=== PATIENT | male | born 1940 | race Caucasian/White ===

== ENCOUNTER 2017-12-01 19:22 | Emergency (ER) | payer MEDICARE, SELFPAY ==
[2017-12-01] MEDS ORDERED: Sulfameth/Trimethoprim DS 800-160mg TAB ONE (20:19)
[2017-12-01] MEDS ORDERED: Bacitracin Zinc 1 Packet ONE (20:19)
== END 2017-12-01 20:45 | disposition home or self-care (01) ==
LOC: ERS 19:22
DX: S51.011A Laceration without foreign body of right elbow, initial encounter (principal); F17.200 Nicotine dependence, unspecified, uncomplicated; V18.4XXA Pedal cycle driver injured in noncollision transport accident in traffic accident, initial encounter
CPT/HCPCS: 99282

== ENCOUNTER 2018-07-02 06:40 | Emergency (ER) | payer OTHER, MEDICARE ==
[2018-07-02] MEDS ORDERED: Cephalexin 250 MG CAP ONE (08:34)
== END 2018-07-02 08:39 | disposition home or self-care (01) ==
LOC: ERS 06:40
DX: M00.9 Pyogenic arthritis, unspecified (principal); F17.210 Nicotine dependence, cigarettes, uncomplicated
CPT/HCPCS: 99283

== ENCOUNTER 2021-03-30 06:11 | Inpatient (IN) | payer OTHER ==
[2021-03-30] MEDS ORDERED: Cefepime 2 GM VIAL ONE (06:27)
[2021-03-30] MEDS ORDERED: Norepinephrine 8 MG/0.9% NS 250 ML ONE (06:48)
[2021-03-30 06:53] LABS: #Lymphocytes 0.6 thou/uL (1.20-3.40); #Monocytes 0.7 thou/uL (0.11-0.59); #Neutrophils 5.1 thou/uL (1.40-6.50); %Eosinophils 0.1 % (0.0-10.0); %Lymphocytes 8.7 % (21.0-51.0); %Monocytes 11.5 % (0.0-10.0); %Neutrophils 79.6 % (42.0-75.0); Hemoglobin 12.7 g/dL (14.0-18.0); Mean Corpuscular HGB CONC 34.5 g/dL (32.0-36.0); Mean Corpuscular Hemoglobin 36.5 pg (27.0-31.0); Mean Platelet Volume 7.8 fL (7.4-10.4); Platelet Count 255 thou/uL (130-400); RBC Distribution Width 13.4 % (11.5-14.5); Red Blood Cell (RBC) Count 3.47 mill/uL (4.70-6.10); White Blood Cell (WBC) Count 6.4 thou/uL (4.8-10.8)
[2021-03-30 07:12] LABS: ALT (SGPT) 19 U/L (8-55); AST (SGOT) 59 U/L (5-34); Albumin 3.6 g/dL (3.4-4.8); Alkaline Phosphatase 84 U/L (40-110); Anion Gap 21 mmol/L (10-20); BUN (Urea Nitrogen) 58 mg/dL (8.4-25.7); Bilirubin, Total 1.6 mg/dL (0.2-1.2); CK (CPK) 549 U/L (30-200); Calc. Creatinine Clearance 0 mL/min (70-130); Carbon Dioxide 29 mmol/L (23-31); Chloride 105 mmol/L (98-107); Globulin 3.8 g/dL (2.4-3.5); Glucose 123 mg/dL (83-110); Lipase 123 U/L (8-78); Protein, Total 7.4 g/dL (5.8-8.1); Sodium 152 mmol/L (136-145)
[2021-03-30 07:18] LABS: Calcium 15.4 mg/dL (7.8-10.44); Potassium 2.8 mmol/L (3.5-5.1)
[2021-03-30 07:33] LABS: Bilirubin 1+ (Negative); Blood, Urine Trace (Negative); Clarity Turbid (Clear); Glucose, Urine (Dipstick) Normal (Negative); Ketone, Urine Negative (Negative); Leukocyte Negative Leu/uL (Negative); Nitrite Negative (Negative); Protein, Urine (Dipstick) 20 mg/dL (Neg-Trace); RBC/HPF 0-3 HPF (0-3); Specific Gravity, Urine 1.018 (1.002-1.036); Squamous Epithelial 0-3 HPF (0-3); Urobilinogen Normal mg/dL (Less than 2); pH, Urine 5.5 (5.0-9.0)
[2021-03-30 07:36] LABS: Bacteria/HPF 1+ HPF (None Seen)
[2021-03-30 07:42] LABS: Amphetamine Not Detected (NotDetected); Barbiturates Screen Not Detected (NotDetected); Benzodiazepine Screen Not Detected (NotDetected); Cocaine Metabolite Screen Not Detected (NotDetected); Medtox Control Line Valid? VALID (VALID); Medtox Reader # READER 4; Methadone Not Detected (NotDetected); Methamphetamine Not Detected (NotDetected); Opiate Screen Not Detected (NotDetected); Oxycodone Screen Not Detected (NotDetected); Phencyclidine (PCP) Not Detected (NotDetected); THC/Cannabinoid Screen Not Detected (NotDetected); Tricyclic Screen Not Detected (NotDetected)
[2021-03-30 07:49] LABS: CKMB 10.4 ng/mL (0-6.6)
[2021-03-30 08:01] LABS: Acetaminophen Less than 6.0 mcg/mL (10.0-30.0); Alcohol Less than 10 mg/dL (Less than 10); Salicylate Less than 8.0 mg/dL (15.0-30.0)
[2021-03-30] MEDS ORDERED: Vancomycin 1 GM/200 ML BAG ONE (08:29)
[2021-03-30] MEDS ORDERED: Aspirin 300 MG Suppository ONE (08:29)
[2021-03-30] MEDS ORDERED: Senokot S 8.6-50 MG TAB PO PRN (08:31)
[2021-03-30] MEDS ORDERED: Ondansetron PF 4 MG/2 ML Vial IVP PRN (08:31)
[2021-03-30] MEDS ORDERED: Sodium Chloride 0.9% 1,000 ML IV SCH ×2 (08:45→15:15)
[2021-03-30 09:52] LABS: Lactic Acid 2.4 mmol/L (0.5-2.2)
[2021-03-30 10:18] LABS: Troponin I 0.542 ng/mL (< 0.028)
[2021-03-30 11:15] LABS: SARS-CoV-2 NAA Rapid Test Not Detected (NotDetected)
[2021-03-30] MEDS: Heparin 5,000 UNITS/ML VIAL SC SCH ×3 (13:01→20:21)
[2021-03-30 14:55] LABS: Anion Gap 12 mmol/L (10-20); BUN (Urea Nitrogen) 55 mg/dL (8.4-25.7); Calc. Creatinine Clearance 19 mL/min (70-130); Calcium 12.8 mg/dL (7.8-10.44); Carbon Dioxide 28 mmol/L (23-31); Chloride 113 mmol/L (98-107); Glucose 172 mg/dL (83-110); Magnesium 1.8 mg/dL (1.6-2.6); Potassium 2.2 mmol/L (3.5-5.1); Sodium 151 mmol/L (136-145)
[2021-03-30 15:02] LABS: Troponin I 0.607 ng/mL (< 0.028)
[2021-03-30] MEDS: Potassium Chloride 20 MEQ in Premix Bag 1 BAG IVPB SCH ×2 (15:18→17:29)
[2021-03-30] MEDS: Potassium Chloride 40 MEQ in Dextrose 5% in Water 1,000 ML IV SCH (16:44)
[2021-03-30 18:52] LABS: Anion Gap 14 mmol/L (10-20); BUN (Urea Nitrogen) 54 mg/dL (8.4-25.7); Calc. Creatinine Clearance 21 mL/min (70-130); Calcium 12.2 mg/dL (7.8-10.44); Carbon Dioxide 24 mmol/L (23-31); Chloride 115 mmol/L (98-107); Glucose 107 mg/dL (83-110); Magnesium 1.7 mg/dL (1.6-2.6); Phosphorus 1.5 mg/dL (2.3-4.7); Sodium 150 mmol/L (136-145)
[2021-03-30 19:16] LABS: CKMB 8.3 ng/mL (0-6.6); Critical Call CKMB RESULT DECREASING
[2021-03-30] MEDS ORDERED: Rosuvastatin 20 MG TAB PO SCH (21:00)
[2021-03-31] MEDS: Potassium Chloride 40 MEQ in Dextrose 5% in Water 1,000 ML IV SCH ×2 (01:32→20:24)
[2021-03-31 02:22] LABS: #Lymphocytes 0.5 thou/uL (1.20-3.40); #Monocytes 0.8 thou/uL (0.11-0.59); %Eosinophils 0.5 % (0.0-10.0); %Lymphocytes 7.1 % (21.0-51.0); %Monocytes 10.7 % (0.0-10.0); %Neutrophils 81.7 % (42.0-75.0); Hemoglobin 10.1 g/dL (14.0-18.0); Mean Corpuscular HGB CONC 35.3 g/dL (32.0-36.0); Mean Corpuscular Hemoglobin 37.4 pg (27.0-31.0); Mean Platelet Volume 7.6 fL (7.4-10.4); Platelet Count 159 thou/uL (130-400); RBC Distribution Width 13.5 % (11.5-14.5); Red Blood Cell (RBC) Count 2.69 mill/uL (4.70-6.10); White Blood Cell (WBC) Count 7.3 thou/uL (4.8-10.8)
[2021-03-31 02:48] LABS: ALT (SGPT) 23 U/L (8-55); AST (SGOT) 68 U/L (5-34); Albumin 2.8 g/dL (3.4-4.8); Alkaline Phosphatase 77 U/L (40-110); Anion Gap 12 mmol/L (10-20); BUN (Urea Nitrogen) 54 mg/dL (8.4-25.7); Bilirubin, Total 1.2 mg/dL (0.2-1.2); Calc. Creatinine Clearance 21 mL/min (70-130); Carbon Dioxide 27 mmol/L (23-31); Chloride 113 mmol/L (98-107); Cholesterol 142 mg/dl (< 200 Desired); Globulin 2.8 g/dL (2.4-3.5); Glucose 130 mg/dL (83-110); HDL Cholesterol 48 mg/dL (>60 Neg Risk); LDL Cholesterol, Calculated 72 mg/dL; Magnesium 1.6 mg/dL (1.6-2.6); Potassium 3.1 mmol/L (3.5-5.1); Protein, Total 5.6 g/dL (5.8-8.1); Sodium 149 mmol/L (136-145); Triglycerides 109 mg/dL (Less than 150)
[2021-03-31 02:50] LABS: Calcium 12.3 mg/dL (7.8-10.44)
[2021-03-31] MEDS ORDERED: Electrolyte Replacement Protocol FS PRN (03:15)
[2021-03-31] MEDS ORDERED: Electrolyte Replacement Protocol 1 EACH FS SCH (03:15)
[2021-03-31] MEDS ORDERED: Magnesium 2 GM/50 ML 2 GM in Premix Bag 1 BAG IVPB SCH ×2 (03:30→14:30)
[2021-03-31] MEDS ORDERED: Potassium Phosphate 22 MMOL in Sodium Chloride 0.9% 250 ML 250 ML IVPB SCH (03:30)
[2021-03-31] MEDS ORDERED: Potassium Chloride 20 MEQ in Premix Bag 1 BAG IVPB SCH (07:30)
[2021-03-31] MEDS ORDERED: Vancomycin HCl 750 MG in Sodium Chloride 0.9% 250 ML 250 ML IVPB SCH ×2 (08:30→10:45)
[2021-03-31] MEDS: Aspirin 300 MG Suppository PR SCH (09:02)
[2021-03-31] MEDS: Heparin 5,000 UNITS/ML VIAL SC SCH ×3 (09:02→20:41)
[2021-03-31 11:58] LABS: Actual Bicarbonate (HCO3a) 25.3 mEq/L (22-28); Base Excess (BEa) 0.6 mEq/L (-2.0 to +3.0); CO2 Tension 40.7 mmHg (35.0-45.0); Calcium, Ionized (arterial) 1.56 mmol/L (1.12-1.30); Carboxyhemoglobin (COHb) 0.3 gm% (0.0-3.0); Hemoglobin (Hb) 10.5 g/dL (14.0-18.0); O2 Tension (PaO2), arterial 81.7 mmHg (> 60.0); Potassium - ABG Lab 3.57 mmol/L (3.70-5.30); pH, Arterial 7.41 (7.35-7.45)
[2021-03-31 11:59] LABS: ALV-art Gradient 580.425 mmHg (0-20); Puncture Site RRA
[2021-03-31] MEDS ORDERED: Furosemide 40 MG/4 ML VIAL SLOW IVP SCH (12:15)
[2021-03-31 12:39] LABS: Phosphorus 2.5 mg/dL (2.3-4.7)
[2021-03-31] MEDS: Calcitonin,Salmon,Synthetic 200 UNITS/ML MDV SC SCH ×2 (13:01→21:20)
[2021-03-31 13:36] LABS: INR-International Normal Ratio 1.2; PTT 30.3 sec (22.9-36.1); Prothrombin Time 14.9 sec (12.0-14.7)
[2021-03-31 14:45] LABS: Potassium 3.7 mmol/L (3.5-5.1)
[2021-03-31] MEDS ORDERED: Dextrose 5% in Water 1,000 ML IV SCH (15:30)
[2021-03-31] MEDS: Dexamethasone 4 mg/ml Vial SLOW IVP SCH (18:25)
[2021-03-31] MEDS: Rosuvastatin 10 MG TAB PO SCH (20:42)
[2021-04-01] MEDS: Dexamethasone 4 mg/ml Vial SLOW IVP SCH ×5 (00:17→18:59)
[2021-04-01] MEDS: Heparin 5,000 UNITS/ML VIAL SC SCH ×3 (08:59→20:01)
[2021-04-01] MEDS: Aspirin 300 MG Suppository PR SCH (08:59)
[2021-04-01] MEDS: Sodium Chloride 0.9% 1,000 ML IV SCH (08:59)
[2021-04-01 09:12] LABS: Anion Gap 14 mmol/L (10-20); BUN (Urea Nitrogen) 54 mg/dL (8.4-25.7); Calc. Creatinine Clearance 24 mL/min (70-130); Calcium 10.9 mg/dL (7.8-10.44); Carbon Dioxide 24 mmol/L (23-31); Chloride 109 mmol/L (98-107); Glucose 163 mg/dL (83-110); Potassium 3.4 mmol/L (3.5-5.1); Sodium 144 mmol/L (136-145)
[2021-04-01] MEDS: Calcitonin,Salmon,Synthetic 200 UNITS/ML MDV SC SCH ×2 (10:08→20:00)
[2021-04-01] MEDS ORDERED: Potassium Chloride 20 MEQ in Premix Bag 1 BAG IVPB SCH (11:00)
[2021-04-01] MEDS: Rosuvastatin 10 MG TAB PO SCH (20:02)
[2021-04-02] MEDS: Dexamethasone 4 mg/ml Vial SLOW IVP SCH (01:52)
[2021-04-02] MEDS: Sodium Chloride 0.9% 1,000 ML IV SCH (03:14)
[2021-04-02 03:55] LABS: Anion Gap 15 mmol/L (10-20); BUN (Urea Nitrogen) 50 mg/dL (8.4-25.7); Calc. Creatinine Clearance 30 mL/min (70-130); Calcium 10.5 mg/dL (7.8-10.44); Carbon Dioxide 23 mmol/L (23-31); Chloride 114 mmol/L (98-107); Glucose 143 mg/dL (83-110); Potassium 3.3 mmol/L (3.5-5.1); Sodium 149 mmol/L (136-145)
[2021-04-02] MEDS ORDERED: Dexamethasone 4 mg/ml Vial SLOW IVP SCH (08:00)
[2021-04-02] MEDS: Heparin 5,000 UNITS/ML VIAL SC SCH ×3 (08:19→20:30)
[2021-04-02] MEDS: Aspirin 300 MG Suppository PR SCH (08:19)
[2021-04-02] MEDS: methylPREDNISolone Sod Succ 40 MG VIAL IVP SCH (09:33)
[2021-04-02] MEDS: Labetalol HCl 100 MG/20 ML VIAL SLOW IVP PRN (12:45)
[2021-04-02] MEDS: Potassium Chloride 20 MEQ in Premix Bag 1 BAG IVPB SCH ×2 (15:09→18:01)
[2021-04-02] MEDS: Rosuvastatin 10 MG TAB PO SCH (20:30)
[2021-04-03] MEDS: Labetalol HCl 100 MG/20 ML VIAL SLOW IVP PRN ×3 (02:10→20:40)
[2021-04-03] MEDS: Sodium Chloride 0.9% 1,000 ML IV SCH (05:20)
[2021-04-03 05:48] LABS: Anion Gap 14 mmol/L (10-20); BUN (Urea Nitrogen) 38 mg/dL (8.4-25.7); Calc. Creatinine Clearance 39 mL/min (70-130); Calcium 10.3 mg/dL (7.8-10.44); Carbon Dioxide 25 mmol/L (23-31); Chloride 117 mmol/L (98-107); Glucose 101 mg/dL (83-110); Potassium 3.8 mmol/L (3.5-5.1); Sodium 152 mmol/L (136-145)
[2021-04-03] MEDS: Heparin 5,000 UNITS/ML VIAL SC SCH ×3 (10:02→20:42)
[2021-04-03] MEDS: Aspirin 300 MG Suppository PR SCH (10:02)
[2021-04-03] MEDS: methylPREDNISolone Sod Succ 40 MG VIAL IVP SCH (10:02)
[2021-04-03] MEDS: Dextrose 5% in Water 1,000 ML IV SCH ×2 (10:06→23:56)
[2021-04-03 11:16] VITALS: BMI 18.8
[2021-04-03] MEDS ORDERED: Amlodipine 10 MG TAB PO SCH (14:00)
[2021-04-03] MEDS: Rosuvastatin 10 MG TAB PO SCH (21:20)
[2021-04-04 06:07] LABS: Anion Gap 14 mmol/L (10-20); BUN (Urea Nitrogen) 32 mg/dL (8.4-25.7); Calc. Creatinine Clearance 43 mL/min (70-130); Calcium 10.3 mg/dL (7.8-10.44); Carbon Dioxide 24 mmol/L (23-31); Chloride 113 mmol/L (98-107); Glucose 105 mg/dL (83-110); Potassium 3.6 mmol/L (3.5-5.1); Sodium 147 mmol/L (136-145)
[2021-04-04] MEDS: methylPREDNISolone Sod Succ 40 MG VIAL IVP SCH (10:32)
[2021-04-04] MEDS: Aspirin 300 MG Suppository PR SCH (10:32)
[2021-04-04] MEDS: Amlodipine 10 MG TAB PO SCH (10:32)
[2021-04-04] MEDS: Heparin 5,000 UNITS/ML VIAL SC SCH ×3 (10:32→20:48)
[2021-04-04] MEDS: Dextrose 5% in Water 1,000 ML IV SCH (10:34)
[2021-04-04] MEDS: Acetaminophen 325 MG TAB PO PRN (20:47)
[2021-04-04] MEDS: Rosuvastatin 10 MG TAB PO SCH (20:47)
[2021-04-05] MEDS: Dextrose 5% in Water 1,000 ML IV SCH (00:58)
[2021-04-05] MEDS ORDERED: Dextrose 5% in Water 1,000 ML IV SCH (11:08)
[2021-04-05 12:15] LABS: Anion Gap 14 mmol/L (10-20); BUN (Urea Nitrogen) 25 mg/dL (8.4-25.7); Calc. Creatinine Clearance 51 mL/min (70-130); Calcium 9.9 mg/dL (7.8-10.44); Carbon Dioxide 20 mmol/L (23-31); Chloride 109 mmol/L (98-107); Glucose 128 mg/dL (83-110); Potassium 3.2 mmol/L (3.5-5.1); Sodium 140 mmol/L (136-145)
[2021-04-05] MEDS: methylPREDNISolone Sod Succ 40 MG VIAL IVP SCH (12:20)
[2021-04-05] MEDS: Amlodipine 10 MG TAB PO SCH ×2 (12:20→12:37)
[2021-04-05] MEDS: Aspirin 300 MG Suppository PR SCH (12:20)
[2021-04-05] MEDS: Heparin 5,000 UNITS/ML VIAL SC SCH ×3 (12:21→21:13)
[2021-04-05] MEDS ORDERED: Potassium Chloride 20 MEQ TAB PO SCH (12:30)
[2021-04-05] MEDS: Acetaminophen 325 MG TAB PO PRN (21:12)
[2021-04-05] MEDS: Rosuvastatin 10 MG TAB PO SCH ×2 (21:12→22:14)
[2021-04-05] MEDS: Lidocaine 5% Patch TD SCH (21:16)
[2021-04-06 06:02] LABS: Anion Gap 10 mmol/L (10-20); BUN (Urea Nitrogen) 26 mg/dL (8.4-25.7); Calc. Creatinine Clearance 47 mL/min (70-130); Carbon Dioxide 25 mmol/L (23-31); Chloride 107 mmol/L (98-107); Glucose 105 mg/dL (83-110); Potassium 3.3 mmol/L (3.5-5.1); Sodium 139 mmol/L (136-145)
[2021-04-06] MEDS ORDERED: Potassium Chloride 20 MEQ TAB PO SCH (06:30)
[2021-04-06] MEDS ORDERED: Lidocaine 5% Patch TD SCH (09:00)
[2021-04-06] MEDS: Heparin 5,000 UNITS/ML VIAL SC SCH ×3 (09:02→21:44)
[2021-04-06] MEDS: Amlodipine 10 MG TAB PO SCH (09:02)
[2021-04-06] MEDS: Transdermal Patch Removal TOP SCH (09:03)
[2021-04-06] MEDS: methylPREDNISolone Sod Succ 40 MG VIAL IVP SCH (09:03)
[2021-04-06] MEDS: Aspirin 300 MG Suppository PR SCH (09:03)
[2021-04-06] MEDS ORDERED: Transdermal Patch Removal TOP SCH (21:00)
[2021-04-06] MEDS: Lidocaine 5% Patch TD SCH (21:51)
[2021-04-06] MEDS: Acetaminophen 325 MG TAB PO PRN (21:52)
[2021-04-06] MEDS: Rosuvastatin 10 MG TAB PO SCH (21:52)
[2021-04-07 05:56] LABS: Anion Gap 13 mmol/L (10-20); BUN (Urea Nitrogen) 28 mg/dL (8.4-25.7); Calc. Creatinine Clearance 42 mL/min (70-130); Calcium 9.9 mg/dL (7.8-10.44); Carbon Dioxide 23 mmol/L (23-31); Chloride 110 mmol/L (98-107); Glucose 93 mg/dL (83-110); Potassium 3.1 mmol/L (3.5-5.1); Sodium 143 mmol/L (136-145)
[2021-04-07] MEDS ORDERED: Potassium Chloride 20 MEQ TAB PO SCH (06:15)
[2021-04-07] MEDS: Potassium Chloride 20 MEQ in Premix Bag 1 BAG IVPB SCH ×2 (08:13→10:35)
[2021-04-07] MEDS: methylPREDNISolone Sod Succ 40 MG VIAL IVP SCH (08:14)
[2021-04-07] MEDS: Aspirin 300 MG Suppository PR SCH (08:18)
[2021-04-07] MEDS: Heparin 5,000 UNITS/ML VIAL SC SCH ×3 (08:18→19:56)
[2021-04-07] MEDS: Amlodipine 10 MG TAB PO SCH (08:18)
[2021-04-07] MEDS: Transdermal Patch Removal TOP SCH (10:35)
[2021-04-07] MEDS: Potassium Bicarbonate/Cit Ac 25 MEQ TAB PO SCH ×2 (16:40→16:46)
[2021-04-07] MEDS: Rosuvastatin 10 MG TAB PO SCH (19:57)
[2021-04-07] MEDS: Lidocaine 5% Patch TD SCH (20:09)
[2021-04-08 05:00] LABS: Anion Gap 13 mmol/L (10-20); BUN (Urea Nitrogen) 29 mg/dL (8.4-25.7); Calc. Creatinine Clearance 43 mL/min (70-130); Carbon Dioxide 22 mmol/L (23-31); Chloride 112 mmol/L (98-107); Glucose 106 mg/dL (83-110); Potassium 3.4 mmol/L (3.5-5.1); Sodium 144 mmol/L (136-145)
[2021-04-08] MEDS: Potassium Chloride 20 MEQ TAB PO SCH (09:39)
[2021-04-08] MEDS: Amlodipine 10 MG TAB PO SCH (09:39)
[2021-04-08] MEDS: Heparin 5,000 UNITS/ML VIAL SC SCH ×3 (09:39→20:43)
[2021-04-08] MEDS: Aspirin 300 MG Suppository PR SCH (09:40)
[2021-04-08] MEDS: Transdermal Patch Removal TOP SCH (11:01)
[2021-04-08] MEDS: Acetaminophen 325 MG TAB PO PRN (15:53)
[2021-04-08] MEDS: Lidocaine 5% Patch TD SCH (19:45)
[2021-04-08] MEDS: Rosuvastatin 10 MG TAB PO SCH (20:44)
[2021-04-09] MEDS: Aspirin 300 MG Suppository PR SCH (08:14)
[2021-04-09] MEDS: Amlodipine 10 MG TAB PO SCH (08:14)
[2021-04-09] MEDS: Heparin 5,000 UNITS/ML VIAL SC SCH ×3 (08:14→19:51)
[2021-04-09] MEDS: Potassium Chloride 20 MEQ TAB PO SCH (08:14)
[2021-04-09] MEDS: Transdermal Patch Removal TOP SCH (11:36)
[2021-04-09] MEDS: Lidocaine 5% Patch TD SCH (19:51)
[2021-04-09] MEDS: Rosuvastatin 10 MG TAB PO SCH (19:51)
[2021-04-10] MEDS: Heparin 5,000 UNITS/ML VIAL SC SCH ×2 (08:58→14:48)
[2021-04-10] MEDS: Aspirin 300 MG Suppository PR SCH (08:59)
[2021-04-10] MEDS: Potassium Chloride 20 MEQ TAB PO SCH (08:59)
[2021-04-10 10:49] VITALS: BP 144/23; TEMP 98.4
[2021-04-10] MEDS: Transdermal Patch Removal TOP SCH (11:16)
[2021-04-10] MEDS: Amlodipine 10 MG TAB PO SCH (11:17)
== END 2021-04-10 14:43 | disposition expired | DRG 640 ==
LOC: ERS 06:11 → ERHOLD 08:42 → 2NO 13:35 → 2SE 19:47 → CCU 03-31 12:09 → IMCU/EMU 04-01 16:26 → T4-A 04-02 16:34
PROVIDERS: ADMIT Internal Medicine; ATTEND Internal Medicine
PROC: 02HV33Z Insertion of Infusion Device into Superior Vena Cava, Percutaneous Approach (ICD-10-PCS; principal; 2021-03-30)
DX: E86.0 Dehydration (principal); J96.01 Acute respiratory failure with hypoxia; G93.41 Metabolic encephalopathy; Z66 Do not resuscitate; Z51.5 Encounter for palliative care; Z20.822 Contact with and (suspected) exposure to COVID-19; N17.9 Acute kidney failure, unspecified; Z68.1 Body mass index [BMI] 19.9 or less, adult; C79.89 Secondary malignant neoplasm of other specified sites; J90 Pleural effusion, not elsewhere classified; J44.1 Chronic obstructive pulmonary disease with (acute) exacerbation; C79.51 Secondary malignant neoplasm of bone; C34.91 Malignant neoplasm of unspecified part of right bronchus or lung; E44.0 Moderate protein-calorie malnutrition; E87.1 Hypo-osmolality and hyponatremia; E87.0 Hyperosmolality and hypernatremia; E83.52 Hypercalcemia; R62.7 Adult failure to thrive; E87.6 Hypokalemia; F17.210 Nicotine dependence, cigarettes, uncomplicated; N18.9 Chronic kidney disease, unspecified; R77.9 Abnormality of plasma protein, unspecified; E87.8 Other disorders of electrolyte and fluid balance, not elsewhere classified; K21.9 Gastro-esophageal reflux disease without esophagitis; I10 Essential (primary) hypertension; Z96.659 Presence of unspecified artificial knee joint; Z90.89 Acquired absence of other organs; Z85.22 Personal history of malignant neoplasm of nasal cavities, middle ear, and accessory sinuses; Z85.828 Personal history of other malignant neoplasm of skin; Z97.4 Presence of external hearing-aid; Z79.82 Long term (current) use of aspirin; Z79.890 Hormone replacement therapy; Z82.49 Family history of ischemic heart disease and other diseases of the circulatory system; Z80.59 Family history of malignant neoplasm of other urinary tract organ
CPT/HCPCS: 36415; 36416; 36556; 36600; 51701; 70450; 71045; 71250; 72125; 80048; 80053; 80061; 80306; 80307; 81003; 81015; 82140; 82550; 82553; 82805; 83605; 83690; 83735; 83880; 83930; 83935; 83970; 84100; 84145; 84484; 85025; 85610; 85730; 87040; 87086; 87149; 93005; 93010; 93306; 93880; 94640; 94660; 95712; 95819; 95957; 96365; 96374; 96375; J0630; J0692; J1100; J1644; J1940; J2920; J3370; J3475; J3480; J7050; J7070; J7620; U0002; U0005